=== PATIENT | female | born 2000 | race African-American/Black ===

== ENCOUNTER 2022-07-23 13:42 | Inpatient (IN) | payer OTHER ==
[~2022-07-23] VITALS: Ht 167.6 cm; Wt 65.8 kg
[2022-07-23] MEDS ORDERED: ACETAMINOPHEN 325MG TABLET PO STA (16:13)
[2022-07-23] MEDS ORDERED: CEFTRIAXONE 1 G PREMIX 50 ML IV ONE (16:15)
[2022-07-23] MEDS ORDERED: AZITHROMYCIN 500MG/250ML 250 ML IV ONE (16:15)
[2022-07-23] MEDS ORDERED: SODIUM CHLORIDE 0.9% 1000ML BAG (SEPSIS BOLUS) IV ONE (16:15)
[2022-07-23] MEDS ORDERED: IPRATROPIUM BROMIDE (0.02%) 0.5MG/2.5ML NEB HHN STA (16:19)
[2022-07-23] MEDS ORDERED: ALBUTEROL (0.083%) 2.5MG/3ML NEB HHN STA (16:19)
[2022-07-23] MEDS ORDERED: OSELTAMIVIR 75MG CAPSULE PO ONE (16:30)
[2022-07-23] MEDS ORDERED: ONDANSETRON HCL 4MG/2ML INJ IV ONE (16:30)
[2022-07-23 16:44] LABS: BG BASE EXCESS -2.3 mmol/L (-2.0-2.0); BG CARBOXYHEMOGLOBIN 0.8 % (0.5-1.5); BG DEOXYHEMOGLOBIN 3.2 % (0.0-5.0); BG FRACTION INSPIRED OXYGEN 36; BG HCO3 ACT 20.8 mmol/L (22.0-26.0); BG METHEMOGLOBIN 0.5 % (0.0-1.5); BG OXYGEN SATURATION 96.8 % (92.0-98.5); BG OXYHEMOGLOBIN 95.5 % (94.0-97.0); BG PCO2 31.3 mmHg (35.0-45.0); BG PH 7.441 (7.350-7.450); BG PO2 84.6 mmHg (75.0-100.0); BG SAMPLE SITE LEFT BRACHIAL; BG TOTAL HEMOGLOBIN 13.8 g/dL (12.0-18.0); BG VENT MODE NASAL CANNULA
[2022-07-23 16:50] LABS: BASOPHILS % 0.2 % (0.0-2.0); HEMATOCRIT. 41.4 % (36.0-48.0); HEMOGLOBIN. 13.6 g/dL (12.0-16.0); LYMPHOCYTES % 8.9 % (20.0-50.0); MEAN CORPUSCULAR HEMOGLOBIN 28.1 pg (28.0-32.0); MEAN CORPUSCULAR VOLUME 85.5 fL (81.0-99.0); MEAN PLATELET VOLUME 11.1 fl (7.4-10.4); MONOCYTES % 5.1 % (2.0-8.0); NEUTROPHILS % 85.8 % (40.0-76.0); PLATELET 150 x1000/uL (130-400); RED BLOOD CELL COUNT 4.84 mill/uL (4.2-5.4); RED CELL DISTRIBUTION WIDTH 13.7 % (11.6-14.6)
[2022-07-23 17:04] LABS: CHLORIDE 102 mEq/L (98-107); HCG SCREEN NEGATIVE
[2022-07-23 17:09] LABS: D-DIMER 0.67 mg/L FEU (<0.50); INR 1.1; PARTIAL THROMBOPLASTIN TIME 35.2 sec (23.4-31.0); PROTHROMBIN TIME 11.3 sec (9.6-11.0)
[2022-07-23] MEDS ORDERED: IOHEXOL-350 100 ML BOTTLE ONE (19:18)
[2022-07-23] MEDS ORDERED: ACETAMINOPHEN 325MG TABLET PO PRN ×2 (21:00)
[2022-07-23] MEDS ORDERED: MAGNESIUM/ALUMINUM HYDROXIDE/SIMETHICONE 30ML UDC PO PRN (21:00)
[2022-07-23] MEDS ORDERED: ONDANSETRON HCL 4MG/2ML INJ IV PRN (21:00)
[2022-07-23] MEDS ORDERED: ZOLPIDEM TARTRATE 5MG TABLET PO PRN (21:00)
[2022-07-23] MEDS ORDERED: IPRATROPIUM/ALBUTEROL 0.5-3(2.5)MG/3ML NEB HHN PRN (21:00)
[2022-07-23] MEDS ORDERED: DIPHENHYDRAMINE 50MG/ML VIAL IV PRN (21:00)
[2022-07-23] MEDS ORDERED: GUAIFENESIN 200MG/10ML SUGAR FREE UDC PO PRN (21:00)
[2022-07-23] MEDS ORDERED: BENZONATATE 100MG CAPSULE PO PRN (22:00)
[2022-07-23] MEDS ORDERED: ERGOCALCIFEROL 50000UNITS CAPSULE PO NR (22:00)
[2022-07-23] MEDS: SODIUM CHLORIDE 0.9% INJ 3ML FLUSH IVF SCH (22:19)
[2022-07-23] MEDS: LEVOFLOXACIN 500MG PREMIX 100 ML IV SCH (22:19)
[2022-07-23] MEDS: METHYLPREDNISOLONE SOD SUCC 125 MG/2 ML VIAL IV SCH (22:19)
[2022-07-23] MEDS: IPRATROPIUM/ALBUTEROL 0.5-3(2.5)MG/3ML NEB HHN SCH (22:48)
[2022-07-24] VITALS: BP 117/72
[2022-07-24 03:50] VITALS: BP 123/70
[2022-07-24] MEDS: IPRATROPIUM/ALBUTEROL 0.5-3(2.5)MG/3ML NEB HHN SCH ×5 (04:49→21:00)
[2022-07-24] MEDS: METHYLPREDNISOLONE SOD SUCC 125 MG/2 ML VIAL IV SCH (05:26)
[2022-07-24] MEDS: SODIUM CHLORIDE 0.9% INJ 3ML FLUSH IVF SCH ×3 (05:27→21:15)
[2022-07-24 08:00] VITALS: BP 112/70
[2022-07-24] MEDS: GUAIFENESIN 600MG ER TABLET PO SCH ×2 (08:29→21:14)
[2022-07-24] MEDS: ENOXAPARIN 40MG/0.4ML SYR SUBCUT SCH (08:29)
[2022-07-24 12:00] VITALS: BP 120/74
[2022-07-24] MEDS: METHYLPREDNISOLONE SOD SUCC 40 MG/ML VIAL IV SCH ×2 (13:27→21:14)
[2022-07-24 16:00] VITALS: BP 118/76
[2022-07-24 20:00] VITALS: BP 108/58
[2022-07-24] MEDS: LEVOFLOXACIN 500MG PREMIX 100 ML IV SCH (22:05)
[2022-07-25] VITALS: BP 118/73
[2022-07-25] MEDS: IPRATROPIUM/ALBUTEROL 0.5-3(2.5)MG/3ML NEB HHN SCH ×6 (00:50→21:00)
[2022-07-25 04:00] VITALS: BP 119/63
[2022-07-25] MEDS: METHYLPREDNISOLONE SOD SUCC 40 MG/ML VIAL IV SCH ×2 (05:11→14:14)
[2022-07-25] MEDS: SODIUM CHLORIDE 0.9% INJ 3ML FLUSH IVF SCH ×3 (05:11→22:25)
[2022-07-25 07:29] VITALS: BP 128/68
[2022-07-25] MEDS: GUAIFENESIN 600MG ER TABLET PO SCH ×2 (08:38→20:50)
[2022-07-25] MEDS: ENOXAPARIN 40MG/0.4ML SYR SUBCUT SCH (08:45)
[2022-07-25 12:00] VITALS: BP 118/62
[2022-07-25 16:00] VITALS: BP 128/64
[2022-07-25] MEDS: LEVOFLOXACIN 500MG TABLET PO SCH (17:53)
[2022-07-25 20:00] VITALS: BP 107/62
[2022-07-26] VITALS: BP 104/63
[2022-07-26] MEDS: IPRATROPIUM/ALBUTEROL 0.5-3(2.5)MG/3ML NEB HHN SCH ×5 (01:00→15:50)
[2022-07-26 04:00] VITALS: BP 116/73
[2022-07-26] MEDS: SODIUM CHLORIDE 0.9% INJ 3ML FLUSH IVF SCH ×2 (06:49→14:00)
[2022-07-26 08:00] VITALS: BP 122/74
[2022-07-26] MEDS ORDERED: PREDNISONE 20MG TABLET PO SCH (09:00)
[2022-07-26] MEDS: LEVOFLOXACIN 500MG TABLET PO SCH (09:25)
[2022-07-26] MEDS: GUAIFENESIN 600MG ER TABLET PO SCH (09:26)
[2022-07-26] MEDS: ENOXAPARIN 40MG/0.4ML SYR SUBCUT SCH (09:26)
[2022-07-26 12:00] VITALS: BP 110/71
[2022-07-26 16:00] VITALS: BP 111/72
[2022-07-26 16:33] VITALS: BP 105/63
== END 2022-07-26 18:10 | disposition home or self-care (01) | DRG 193 ==
LOC: ER 14:05 → 8WST 20:30 → EDBEDREQTM 20:33 → EDBEDREQ 20:33 → ENRESERV 22:29
PROVIDERS: ADMIT Internal Medicine; ATTEND Internal Medicine
DX: J12.9 Viral pneumonia, unspecified (principal); J96.01 Acute respiratory failure with hypoxia; J45.909 Unspecified asthma, uncomplicated; Z20.822 Contact with and (suspected) exposure to COVID-19; Z82.5 Family history of asthma and other chronic lower respiratory diseases; F12.90 Cannabis use, unspecified, uncomplicated
CPT/HCPCS: 36415; 36600; 71045; 71275; 80053; 82375; 82805; 83605; 83880; 84145; 84484; 84703; 85025; 85379; 87426; 87804; 93005; 94640; 99285; C9803; J0456; J0696; J1200; J1650; J1956; J2405; J2920; J2930; J7030; J7512; Q9967

== ENCOUNTER 2024-01-05 12:22 | Emergency (ER) | payer BC, MEDICAID, OTHER ==
[~2024-01-05] VITALS: Ht 175.3 cm; Wt 95.0 kg
[2024-01-05 12:26] VITALS: BP 145/69; PULSE 80; TEMP 98.4; O2SAT 98
[2024-01-05 13:12] LABS: CLARITY URINE CLOUDY (CLEAR); COLOR URINE YELLOW (YELLOW); GLUCOSE URINE NEGATIVE (NEGATIVE); KETONES URINE NEGATIVE (NEGATIVE); LEUKOCYTE ESTERASE URINE 3+ (NEGATIVE); NITRITE URINE POSITIVE (NEGATIVE); OCCULT BLOOD URINE TRACE (NEGATIVE); PROTEIN URINE NEGATIVE (NEGATIVE); SPECIFIC GRAVITY URINE 1.009 (1.005-1.030); UROBILINOGEN URINE 0.2 E.U./dL (0.2-1.0)
[2024-01-05 13:42] LABS: SQUAMOUS EPITHELIAL CELL URINE 3+ /lpf (RARE/1+)
[2024-01-05 13:44] LABS: BACTERIA URINE 4+; WBC URINE 15-25 /hpf (0-2)
[2024-01-05] MEDS ORDERED: FLUC100T42 MT (16:35)
[2024-01-05] MEDS ORDERED: CEPH500T MT (16:35)
[2024-01-05 16:40] VITALS: RESP 16
== END 2024-01-05 17:44 | disposition home or self-care (01) ==
LOC: ER 12:22
DX: N39.0 Urinary tract infection, site not specified (principal); B37.31 Acute candidiasis of vulva and vagina; F12.10 Cannabis abuse, uncomplicated; F41.9 Anxiety disorder, unspecified
CPT/HCPCS: 81003; 81025; 87086; 87186; 87077; 99283; Z7610

== ENCOUNTER 2024-02-27 11:32 | Emergency (ER) | payer MEDICAID ==
[~2024-02-27] VITALS: Ht 170.2 cm; Wt 91.0 kg
[~2024-02-27 11:32] MED LIST: CEPH500T MT; FLUC100T42 MT
[2024-02-27 11:42] VITALS: O2SAT 99
[2024-02-27 13:13] LABS: CLARITY URINE CLEAR (CLEAR); COLOR URINE YELLOW (YELLOW)
[2024-02-27 13:14] LABS: GLUCOSE URINE NEGATIVE (NEGATIVE); KETONES URINE NEGATIVE (NEGATIVE); LEUKOCYTE ESTERASE URINE 2+ (NEGATIVE); NITRITE URINE NEGATIVE (NEGATIVE); OCCULT BLOOD URINE TRACE (NEGATIVE); PH URINE 5.5 (4.5-8.0); PROTEIN URINE NEGATIVE (NEGATIVE); SPECIFIC GRAVITY URINE 1.014 (1.005-1.030); UROBILINOGEN URINE 0.2 E.U./dL (0.2-1.0)
[2024-02-27 14:18] LABS: SQUAMOUS EPITHELIAL CELL URINE 1+ /lpf (RARE/1+)
[2024-02-27 14:19] LABS: BACTERIA URINE TRACE; TRICHOMONAS URINE 1+
[2024-02-27 14:20] LABS: RBC URINE 0-2 /hpf (0-2); WBC URINE 0-2 /hpf (0-2)
[2024-02-27] MEDS ORDERED: METR-167 MT (14:28)
[2024-02-27 14:40] VITALS: BP 120/79; PULSE 58; RESP 18; TEMP 98.2
[2024-03-02 04:07] LABS: CHLAMYDIA TRACHOMATIS NAA Negative (Negative); NEISSERIA GONORRHOEAE NAA Negative (Negative)
== END 2024-02-27 14:39 | disposition home or self-care (01) ==
LOC: ER 11:32
DX: A59.01 Trichomonal vulvovaginitis (principal); F41.9 Anxiety disorder, unspecified; J45.909 Unspecified asthma, uncomplicated; F12.10 Cannabis abuse, uncomplicated
CPT/HCPCS: 81003; 87210; 87491; 87591; 99283

== ENCOUNTER 2024-07-18 11:12 | Emergency (ER) | payer MEDICAID, OTHER ==
[~2024-07-18] VITALS: Ht 167.6 cm; Wt 65.0 kg
[~2024-07-18 11:12] MED LIST changes: +METR-167 MT
[2024-07-18 11:15] VITALS: BP 122/66; TEMP 98.6; O2SAT 99
[2024-07-18 11:16] VITALS: PULSE 82; RESP 18; O2SAT 95
[2024-07-18 13:24] LABS: CLARITY URINE CLEAR (CLEAR); COLOR URINE YELLOW (YELLOW); GLUCOSE URINE NEGATIVE (NEGATIVE); KETONES URINE NEGATIVE (NEGATIVE); LEUKOCYTE ESTERASE URINE 2+ (NEGATIVE); NITRITE URINE NEGATIVE (NEGATIVE); OCCULT BLOOD URINE NEGATIVE (NEGATIVE); PH URINE 6.5 (4.5-8.0); PROTEIN URINE NEGATIVE (NEGATIVE); SPECIFIC GRAVITY URINE 1.013 (1.005-1.030); UROBILINOGEN URINE 0.2 E.U./dL (0.2-1.0)
[2024-07-18 13:44] LABS: BACTERIA URINE TRACE; SQUAMOUS EPITHELIAL CELL URINE 2+ /lpf (RARE/1+)
[2024-07-18 13:45] LABS: WBC URINE 0-2 /hpf (0-2)
[2024-07-18 13:46] LABS: RBC URINE NONE SEEN /hpf (0-2)
== END 2024-07-18 14:56 | disposition left against medical advice (07) ==
LOC: ER 11:21
DX: R68.89 Other general symptoms and signs (principal); Z53.21 Procedure and treatment not carried out due to patient leaving prior to being seen by health care provider
CPT/HCPCS: 81003; 81025

== ENCOUNTER 2024-10-18 20:13 | Emergency (ER) | payer MEDICAID, OTHER ==
[~2024-10-18] VITALS: Ht 177.8 cm; Wt 90.0 kg
[2024-10-18 20:26] VITALS: BP 138/72; PULSE 92; RESP 18; TEMP 36.8; O2SAT 98
== END 2024-10-18 21:19 | disposition left against medical advice (07) ==
LOC: ER 20:22
DX: R51.9 Headache, unspecified (principal); Z53.21 Procedure and treatment not carried out due to patient leaving prior to being seen by health care provider

== ENCOUNTER 2024-10-19 07:32 | Emergency (ER) | payer MEDICAID ==
[~2024-10-19] VITALS: Ht 168.9 cm; Wt 82.0 kg
[2024-10-19 07:41] VITALS: TEMP 36.7; O2SAT 99
[2024-10-19 09:24] VITALS: BP 106/61; PULSE 63; RESP 16
[2024-10-19] MEDS: TETANUS, DIPHTHERIA, PERTUSSIS VAC/PF 0.5ML (>10YR OLD) IM ONE (09:24)
[2024-10-19] MEDS: KETOROLAC 30MG/ML VIAL IM ONE (09:24)
== END 2024-10-19 08:48 | disposition home or self-care (01) ==
LOC: ER 07:32
DX: S06.0X0A Concussion without loss of consciousness, initial encounter (principal); F12.90 Cannabis use, unspecified, uncomplicated; V43.52XA Car driver injured in collision with other type car in traffic accident, initial encounter; Y93.89 Activity, other specified; Y92.410 Unspecified street and highway as the place of occurrence of the external cause; Y99.8 Other external cause status
CPT/HCPCS: 81025; 90715; 90471; 96372; 99284; J1885; Z7610

== ENCOUNTER 2024-12-28 12:13 | Emergency (ER) | payer MEDICAID ==
[~2024-12-28] VITALS: Ht 167.6 cm; Wt 81.6 kg
[2024-12-28 12:16] VITALS: O2SAT 97
[2024-12-28] MEDS: ACETAMINOPHEN 325MG TABLET PO ONE (12:51)
[2024-12-28] MEDS ORDERED: ACET-2708 MT (13:21)
[2024-12-28 13:34] VITALS: BP 120/85; PULSE 81; RESP 16; TEMP 36.8; O2SAT 99
== END 2024-12-28 13:35 | disposition home or self-care (01) ==
LOC: ER 12:13
DX: R51.9 Headache, unspecified (principal); F12.90 Cannabis use, unspecified, uncomplicated
CPT/HCPCS: 99284

== ENCOUNTER 2025-01-11 13:56 | Emergency (ER) | payer MEDICAID ==
[~2025-01-11] VITALS: Ht 167.6 cm; Wt 79.0 kg
[~2025-01-11 13:56] MED LIST changes: +ACET-2708 MT
[2025-01-11 14:03] VITALS: O2SAT 99
[2025-01-11] MEDS ORDERED: ALBU18HF2 IH (14:35)
[2025-01-11 15:16] VITALS: BP 119/69; PULSE 64; RESP 16; TEMP 37.1; O2SAT 99
== END 2025-01-11 15:17 | disposition home or self-care (01) ==
LOC: ER 14:05
DX: J45.901 Unspecified asthma with (acute) exacerbation (principal); F12.90 Cannabis use, unspecified, uncomplicated
CPT/HCPCS: 71045; 99283; Z7610 ×3

== ENCOUNTER 2025-01-19 13:26 | Emergency (ER) | payer MEDICAID ==
[~2025-01-19] VITALS: Ht 167.6 cm; Wt 77.1 kg
[~2025-01-19 13:26] MED LIST changes: +ALBU18HF2 IH
[2025-01-19 13:31] VITALS: O2SAT 99
[2025-01-19 15:42] LABS: CLARITY URINE CLEAR (CLEAR); COLOR URINE YELLOW (YELLOW); GLUCOSE URINE NEGATIVE (NEGATIVE); KETONES URINE NEGATIVE (NEGATIVE); LEUKOCYTE ESTERASE URINE NEGATIVE (NEGATIVE); NITRITE URINE POSITIVE (NEGATIVE); OCCULT BLOOD URINE TRACE (NEGATIVE); PROTEIN URINE NEGATIVE (NEGATIVE); SPECIFIC GRAVITY URINE 1.014 (1.005-1.030); UROBILINOGEN URINE 0.2 E.U./dL (0.2-1.0)
[2025-01-19 15:55] LABS: WBC URINE 0-2 /hpf (0-2)
[2025-01-19 15:56] LABS: BACTERIA URINE 4+; SQUAMOUS EPITHELIAL CELL URINE FEW /lpf (RARE/1+)
[2025-01-19] MEDS ORDERED: NITR100C MT (16:14)
[2025-01-19 17:05] VITALS: BP 116/72; PULSE 77; RESP 16; TEMP 36.7; O2SAT 99
== END 2025-01-19 17:06 | disposition home or self-care (01) ==
LOC: ER 13:26
DX: N39.0 Urinary tract infection, site not specified (principal); Z79.899 Other long term (current) drug therapy; F12.90 Cannabis use, unspecified, uncomplicated
CPT/HCPCS: 36415; 81003; 81025; 86850; 86900; 87210; 99284

== ENCOUNTER 2025-03-02 14:57 | Emergency (ER) | payer MEDICAID ==
[~2025-03-02] VITALS: Ht 170.2 cm; Wt 97.0 kg
[~2025-03-02 14:57] MED LIST changes: +NITR100C MT
[2025-03-02 15:03] VITALS: O2SAT 98
[2025-03-02] MEDS ORDERED: NAPR-679 MT (16:17)
[2025-03-02] MEDS ORDERED: ONDA4TAB50 MT (16:17)
[2025-03-02 17:10] VITALS: BP 116/68; PULSE 78; RESP 14; TEMP 36.9; O2SAT 100
[2025-03-02] MEDS: ONDANSETRON 4MG ODT PO ONE (17:10)
[2025-03-02] MEDS: KETOROLAC 30MG/ML VIAL IM ONE (17:10)
== END 2025-03-02 17:11 | disposition home or self-care (01) ==
LOC: ER 14:57
DX: S09.90XA Unspecified injury of head, initial encounter (principal); Z79.899 Other long term (current) drug therapy; Z79.1 Long term (current) use of non-steroidal anti-inflammatories (NSAID); F12.90 Cannabis use, unspecified, uncomplicated; X58.XXXA Exposure to other specified factors, initial encounter; Y93.89 Activity, other specified; Y92.89 Other specified places as the place of occurrence of the external cause; Y99.8 Other external cause status
CPT/HCPCS: 96372; 99283; Q0162; J1885; Z7610